=== PATIENT | male | born 1985 | race Caucasian/White ===

== ENCOUNTER 2019-03-10 15:02 | Emergency (ER) | payer SELFPAY ==
[2019-03-10 15:18] VITALS: BP 153/88
--- NOTE | 2019-03-10 15:53 | UC ---
Hand/Wrist HPI - HPI Summary HPI Summary: 33 y/o male presents to the urgent care c/o RT hand and RT 3rd finger and knuckle pain and swelling s/p crushing injury w/ his cow this morning. Pt reports his cow crushed his hand against the wall while he was trying to milk her. He has a discrete abrasion that was bleeding for a moment. He cleaned it. He has not taken any medication for pain or applied ice. Hx of RT pinky fracture in the past. Pt states decrease ROM over 3rd and 4th fingers. Pt denies fever, numbness ore tingling sensation over the RT hand or fingers, SOB, chest pain, abdominal pain, PATTEN, dizziness, N/V/d. Pt has not eaten anything today. - History Of Current Complaint Chief Complaint: UCUpperExtremity Stated Complaint: RIGHT HAND INJURY Time Seen by Provider: 03/10/19 15:51 Hx Obtained From: Patient Onset/Duration: Gradual Onset, Still Present, Worse Since - this afternoon Severity Initially: Moderate Severity Currently: Moderate Pain Intensity: 7 Pain Scale Used: 0-10 Numeric Character Of Pain: Sharp - at the base of the middle finger w/ an abrasion Aggravating Factor(s): Movement, Lifting, Flexion Alleviating Factor(s): Rest Associated Signs And Symptoms: Positive: Swelling, Bruising - over the dorsal side at the base of the middle finger. Negative: Numbness/Tingling Related History: Dominant Hand Right - Allergies/Home Medications Allergies/Adverse Reactions: Allergies Allergy/AdvReac Type Severity Reaction Status Date / Time No Known Allergies Allergy Verified 03/10/19 15:14 Home Medications: Home Medications NK [No Home Medications Reported] 03/10/19 [History Confirmed 03/10/19] PMH/Surg Hx/FS Hx/Imm Hx Previously Healthy: Yes - Pt denies PMHX Other History Of: Negative For: HIV, Hepatitis B, Hepatitis C, Anticoagulant Therapy - Surgical History Surgical History: Yes Surgery Procedure, Year, and Place: Lipoma removal on neck - Family History Known Family History: Positive: Hypertension - Social History Occupation: Employed Full-time Lives: With Family Alcohol Use: None Substance Use Type: Marijuana Substance Use Comment - Amount & Last Used: nightly Smoking Status (MU): Heavy Every Day Tobacco Smoker Type: Cigarettes Amount Used/How Often: 1 ppd Have You Smoked in the Last Year: Yes - Immunization History Most Recent Influenza Vaccination: no Review of Systems All Other Systems Reviewed And Are Negative: Yes Constitutional: Positive: Negative Skin: Positive: Bruising - abrasion over the dorsal side at the base of the Rt middle finger Eyes: Positive: Negative ENT: Positive: Negative Respiratory: Positive: Negative Cardiovascular: Positive: Negative Gastrointestinal: Positive: Negative Genitourinary: Positive: Negative Motor: Positive: Negative Neurovascular: Positive: Negative Musculoskeletal: Positive: Decreased ROM - 3rd and 4th finger, Other: - RT hand painand bse of the middle finger pain s/p crushed injury w/ a cow Neurological: Positive: Negative Psychological: Positive: Negative Is Patient Immunocompromised?: No Physical Exam - Summary Physical Exam Summary: Vital Signs Reviewed: Yes General: Well developed well nourished male sitting in the examining table w/o any apparent distress Eyes: Positive: Conjunctiva Clear - PERRLA, EOMI ENT: Positive: Normal ENT inspection, Hearing grossly normal, Pharynx normal, TMs normal Neck: Positive: Supple, Nontender, No Lymphadenopathy Respiratory: Positive: Chest non-tender, Lungs clear, Normal breath sounds, No respiratory distress Cardiovascular: Positive: RRR, No Murmur, Pulses Normal, Brisk Capillary Refill Abdomen Description: Positive: Nontender, No Organomegaly, Soft. Negative: CVA Tenderness (R), CVA Tenderness (L) Bowel Sounds: Positive: Present Musculoskeletal: Positive: Strength Intact, No Edema, RT Hand/Fingers: the RT hand is without obvious asymmetry or deformity when compared to the L hand. mild swelling around dorsal side of #3 MCPJ, w/ an abrasion over and tender to palpation. Decrease ROM due to pain ove 3rd and 4th phalanx. NO obvious deformity. Normal cascade of fingers except for 3rd and 4th phalax. FDS and FDP intact against resistance. No focal fullness, throbbing pain, swelling of finger tip. Pulses and capillary refill WNL, positive reflexes and sensation intact Neurological Exam: Normal Psychological Exam: Normal Skin Exam: Normal Triage Information Reviewed: Yes Vital Signs: Initial Vital Signs Temp 98.9 F 03/10/19 15:15 Pulse 82 03/10/19 15:15 Resp 15 03/10/19 15:15 BP 153/88 03/10/19 15:15 Pulse Ox 98 03/10/19 15:15 Hand/Wrist Course/Dx - Course Course Of Treatment: 33 y/o male presents to the urgent care c/o RT hand and RT 3rd finger and knuckle pain and swelling s/p crushing injury w/ his cow this morning. Pt reports his cow crushed his hand against the wall while he was trying to milk her. He has a discrete abrasion that was bleeding for a moment. He cleaned it. He has not taken any medication for pain or applied ice. Hx of RT pinky fracture in the past. Pt states decrease ROM over 3rd and 4th fingers. Pt denies fever, numbness ore tingling sensation over the RT hand or fingers, SOB, chest pain, abdominal pain, PATTEN, dizziness, N/V/d. Pt has not eaten anything today. Hx obtained. Pt w/ Positive mild swelling around dorsal side of #3 MCPJ , w/ an abrasion over and tender to palpation. Decrease ROM due to pain ove 3rd and 4th phalanx. NO obvious deformity on examination. RT hand X-ray ordered: impression:no acute osseous injury observed as per radiologist. Bacitracin oint applied Pt' RT finger immobilized with a finger splint and body tape with #4th digit. Pt experience almost a vasovagal syncope at X-ray, but then after elevated legs he felt better. Pt given Ibuprofen PO at the clinic for pain by nurse,Pt tolerated well medication and pain decrease.Pt' RT 3rd finger immobilized with a finger splint and body tape with #4th digit and the whole RT hand immobilized w/ wojciech bandage. Pt advised RICE. F/u with Orthopedic Sports Medicine in 1 week for further evaluation and treatment. Pt's BP is elevated today advised to decrease salt in diet, monitor BP and f/u with PCP for further management. Pt understood and agreed with D/C instructions. - Differential Dx/Diagnosis Differential Diagnosis/HQI/PQRI: Abrasion, Contusion, Fracture, Infection, Puncture Wound, Sprain, Strain, Tendonitis, Other - laceration Provider Diagnosis: Injury of right hand, Sprain of right hand, Abrasion of right hand, Elevated BP without diagnosis of hypertension Discharge ED - Sign-Out/Discharge Documenting (check all that apply): Patient Departure - D/C home All imaging exams completed and their final reports reviewed: Yes - Discharge Plan Condition: Stable Disposition: HOME Patient Education Materials: Hand Sprain (ED) Referrals: [facility] [Provider Group] - 1 Week [facility] [place]] - 1 Week Additional Instructions: 1-Please take Ibuprofen PO q6-8hrs prn after meals as directed to alleviate pain and swelling. 2-Please apply ice, keep your hand immobilized with the finger splint and WOJCIECH bandage. Keep it elevated and avoid strenuous exercise or heavy lifting. 3- Please f/u with Orthopedic from Sports Medicine in 1 week is not improvement of symptoms for further evaluation and treatment. 4- Please increase hydration and eat well, if you experience again the vasovagal symptoms please go immediately to the ER for further management. 5- Your BP is elevated today. please decrease salt in your diet, monitor BP and if it continues to be elevated please f/u with your PCP for further management. - Billing Disposition and Condition Condition: STABLE Disposition: Home
[2019-03-10] MEDS ORDERED: Ibuprofen TAB* 400 MG PO ONE (16:00)
== END 2019-03-10 17:29 | disposition home or self-care (01) ==
LOC: UCCORT 15:02
DX: S63.8X1A Sprain of other part of right wrist and hand, initial encounter (principal); S60.511A Abrasion of right hand, initial encounter; R03.0 Elevated blood-pressure reading, without diagnosis of hypertension; F17.210 Nicotine dependence, cigarettes, uncomplicated; W55.22XA Struck by cow, initial encounter; Y92.9 Unspecified place or not applicable
CPT/HCPCS: 99212; A9270-GY; G0463